=== PATIENT | female | born 1925 | race Caucasian/White ===

== ENCOUNTER 2017-11-16 10:15 | Emergency (ER) | payer MEDICARE ==
[2017-11-16 11:19] LABS: ABS Basophils 0 10^3/ul (0-0.2); ABS Eosinophils 0.1 10^3/ul (0-0.6); ABS Lymphocytes 1.9 10^3/ul (1.0-4.8); ABS Monocytes 0.4 10^3/ul (0-0.8); ABS Neutrophils 3.6 10^3/ul (1.5-7.7); ABS Nucleated RBC 0 10^3/ul; Eosinophil % 2.1 % (0-6); Hematocrit 41 % (35-47); Hemoglobin 13.8 g/dl (12.0-16.0); Lymphocyte % 31.4 % (25-47); Mean Corpuscular HGB Conc 34 g/dl (31-36); Mean Corpuscular Hemoglobin 31 pg (27-31); Mean Corpuscular Volume 91 fL (80-97); Mean Platelet Volume 7 um3 (7.4-10.4); Nucleated Red Blood Cells % 0; Platelet Count 185 10^3/ul (150-450); Red Cell Distribution Width 13 % (10.5-15); White Blood Count 6.1 10^3/ul (3.5-10.8)
[2017-11-16 11:36] LABS: EGFR Non-African American 56.8 (>60)
--- NOTE | 2017-11-16 11:53 | RAD ---
INDICATION: Chest pain COMPARISON: Most recent chest x-rays dated June 20, 2016 TECHNIQUE: Single AP portable view of the chest was obtained. FINDINGS: Image quality is compromised due to the relative inferiority of a portable chest x-ray. The heart and mediastinum exhibit normal size and contour. There is density obscuring the left greater than right lung bases. There is bilateral costophrenic angle blunting. More superiorly the lungs are adequately aerated in the AP projection. Visualized bones are normal for the patient's age. IMPRESSION: Density of securing the lung bases could represent atelectasis, consolidation or possibly pleural effusion.
[2017-11-16] MEDS ORDERED: Aspirin TAB* 325 MG PO ONE (12:02)
--- NOTE | 2017-11-16 14:10 | CONSULT ---
Subjective Date of Service: 11/16/17 Interval History: Since about AM she has had brief jolts of pain in her left chest behind her breast, every 5-10 minutes. Not pleuritic. She did not eat breakfast or take her AM meds today. No recent unusual activity, no falls. Chronic RON, unchanged. Family History: Findings - Cancer in both parents. Father had MO. Social History: Findings - Lives alone, never smoked. No alcohol abuse. SDM is her daughter. Past Medical History: Findings - Hysterectomy, , R knee arthroscopy, shoulder surgery. COPD, restless legs, hypothryoid, HTN, OA. Review of Systems - Measurements Intake and Output: Intake and Output Last 24 Hours 11/14/17 11/15/17 11/16/17 11/17/17 06:59 06:59 06:59 06:59 Weight 149 lb - Review of Systems Constitutional Symptoms: Negative: Weight Gain, Weight Loss, Weakness, Fatigue, Fever, Night Sweats, Unexplained Falls, Other Dermatology: Positive: Normal HEENT: Positive: Normal Eyes: Positive: Normal Thyroid: Positive: Primary Hypothyroidism Pulmonary: Positive: Asthma Cardiology: Positive: Chest Pain Gastroenterology: Positive: Normal Genital - Urinary: Positive: Normal Musculoskeletal: Positive: Joint Pain, Low Back Pain Endocrinology: Positive: Thyroid Problems, Obesity Hematologic/Lymphatic: Negative: Anemia, Easy Brusing, Hx Leukemia, Hx Lymphoma, Use of Anticoagulant, Use of Antiplatelet Drugs, Other Neurology: Positive: Normal Psychiatry: Positive: Normal Allergic/Immunologic: Negative: Hx Anaphylaxis, Hx Angioedema, Hx Environmental, Hx Seasonal, Athsma, Hx HIV, Immunocompromise, Swollen Glands LymphNodes, Other Objective Vital Signs - 8 hr 11/16/17 11/16/17 11/16/17 10:16 11:25 11:27 Temperature 97.7 F Pulse Rate 80 70 Respiratory 20 19 Rate Blood Pressure 153/61 (mmHg) O2 Sat by Pulse 97 97 97 Oximetry 11/16/17 11/16/17 11/16/17 12:00 12:32 13:00 Temperature Pulse Rate 79 83 Respiratory 19 21 Rate Blood Pressure 149/75 115/57 (mmHg) O2 Sat by Pulse 96 96 Oximetry Oxygen Devices in Use Now: None Appearance: Alert, sitting up on ED stretcher. In good spirits. Looks comfortable. Eyes: No Scleral Icterus Ears/Nose/Mouth/Throat: Clear Oropharnyx, Mucous Membranes Moist Neck: NL Appearance and Movements; NL JVP, No Thyroid Enlargement, Masses Respiratory: Symmetrical Chest Expansion and Respiratory Effort, Clear to Auscultation, Clear to Percussion Cardiovascular: NL Sounds; No Murmurs; No JVD, RRR, No Edema, - - mild tenderness chest wall just underneath L breast Abdominal: NL Sounds; No Tenderness; No Distention, No Hepatosplenomegaly, - Extremities: No Edema, No Clubbing, Cyanosis Skin: No Rash or Ulcers, No Nodules or Sclerosis Neurological: Alert and Oriented x 3, NL Sensation Result Diagrams: 11/16/17 11:05 11/16/17 11:05 Assessment/Plan - Billing Plan By Medical Problem: 1. Chest pain, not cardiac. Pain lasts 1 second, recurs every 5-10 minutes. Tender at site of pain, suspect chest wall pain. 2. HTN, restless legs, thypothyroid, all stable. Patient and daughter advised to expect resolution of pain in next 1-3 days, fup with Dr. Nixon if any worsening or pain not gone after 3 days.
[2017-11-16 15:48] VITALS: BP 137/60
--- NOTE | 2017-11-16 16:31 | ED ---
Benito Jenkins Gabriel, scribed for Alex Galo MD on 11/16/17 at 1125 . HPI Chest Pain - HPI Summary HPI Summary: This patient is a 89 year old F presenting to [facility] accompanied by her daughter with a chief complaint of CP since 0900 this morning while in bed. Patient denies NVD, SOB, dizziness, and edema. The patient rates the pain 6/10 in severity, located in the middle of her chest, and describes it as jabbing. She states that the pain is intermittent lasting seconds and resolving for several minutes. Symptoms aggravated by nothing. Patient uses a neb at home once a day and has for years. Patient states she takes a baby aspirin every other day. - History of Current Complaint Chief Complaint: EDChestPainROMI Time Seen by Provider: 11/16/17 11:16 Hx Obtained From: Patient Hx Last Menstrual Period: n/a Onset/Duration: Started Hours Ago - 0900, Still Present Timing: Intermittent, Lasting Seconds Initial Severity: Moderate Current Severity: None Pain Intensity: 6 Pain Scale Used: 0-10 Numeric Chest Pain Location: Mid Sternal Chest Pain Radiates: No Character: Sharp/Stabbing - jabbing Aggravating Factor(s): Nothing Associated Signs and Symptoms: Positive: Negative - NVD, SOB, dizziness, and edema - Allergy/Home Medications Allergies/Adverse Reactions: Allergies Allergy/AdvReac Type Severity Reaction Status Date / Time Cefazolin [From Kefzol] Allergy Severe Rash Verified 08/20/17 14:01 Sulfa Drugs Allergy Unknown Unknown Verified 08/20/17 14:01 Reaction Details Budesonide [From Symbicort] Allergy Unknown Verified 08/20/17 14:01 Reaction Details Diphenhydramine Allergy See Comment Verified 08/20/17 14:01 [From Benadryl] Erythromycin Allergy Unknown Verified 08/20/17 14:01 Reaction Details Formoterol [From Symbicort] Allergy Unknown Verified 08/20/17 14:01 Reaction Details Gabapentin [From Neurontin] Allergy Unknown Verified 08/20/17 14:01 Reaction Details Nitrofurantoin Allergy Rash And Verified 08/20/17 14:01 [From Macrodantin] Itching Ropinirole [From Requip] Allergy See Comment Verified 08/20/17 14:01 PMH/Surg Hx/FS Hx/Imm Hx Previously Healthy: No Endocrine/Hematology History: Reports: Hx Thyroid Disease - low thyroid Denies: Hx Diabetes Cardiovascular History: Reports: Hx Hypercholesterolemia, Other Cardiovascular Problems/Disorders - MITROVALVE PROLAPSE Denies: Hx Hypertension Respiratory History: Reports: Hx Asthma - SEVERE, Hx Chronic Obstructive Pulmonary Disease (COPD), Other Respiratory Problems/Disorders - EMPHYSEMA GI History: Denies: Hx Ulcer History: Denies: Hx Renal Disease Sensory History: Reports: Hx Contacts or Glasses Opthamlomology History: Reports: Hx Contacts or Glasses - Surgical History Surgery Procedure, Year, and Place: hysterrectomy; uterus raised; ; L knee; R shoulder reconstruction Infectious Disease History: No Infectious Disease History: Denies: Hx Clostridium Difficile, Hx Hepatitis, Hx Human Immunodeficiency Virus (HIV), Hx of Known/Suspected MRSA, Hx Shingles, Hx Tuberculosis, Hx Known/ Suspected VRE, Hx Known/Suspected VRSA, History Other Infectious Disease, Traveled Outside the [place] in Last 30 Days - Family History Known Family History: Negative: Cardiac Disease - Social History Alcohol Use: None Hx Substance Use: No Substance Use Type: Reports: None Hx Tobacco Use: No Smoking Status (MU): Never Smoked Tobacco Have You Smoked in the Last Year: No Review of Systems Positive: Chest Pain Negative: Shortness Of Breath Negative: Vomiting, Diarrhea, Nausea Negative: Edema Neurological: Negative - dizziness All Other Systems Reviewed And Are Negative: Yes Physical Exam - Summary Physical Exam Summary: Appearance: The patient is well-nourished in no acute distress and in no acute pain. Skin: The skin is warm and dry and skin color reflects adequate perfusion. HEENT: The head is normocephalic and atraumatic. The pupils are equal and reactive. The conjunctivae are clear and without drainage. Nares are patent and without drainage. Mouth reveals moist mucous membranes and the throat is without erythema and exudate. The external ears are intact. The ear canals are patent and without drainage. The tympanic membranes are intact. Neck: the neck is supple with full range of motion and non-tender. There are no carotid bruits. There is no neck vein distension. Respiratory: Chest is non-tender. Lungs are clear to auscultation and breath sounds are symmetrical and equal. Cardiovascular: Heart is regular rate and rhythm. There is no murmur or rub auscultated. There is no peripheral edema and pulses are symmetrical and equal. Abdomen: The abdomen is soft and non-tender. There are normal bowel sounds heard in all four quadrants and there is no organomegaly palpated. Musculoskeletal: There is no back tenderness noted. Extremities are non-tender with full range of motion. There is good capillary refill. There is no peripheral edema or calf tenderness elicited. Neurological: Patient is alert and oriented to person, place and time. The patient has symmetrical motor strength in all four extremities. Cranial nerves are grossly intact. Deep tendon reflexes are symmetrical and equal in all four extremities. Psychiatric: The patient has an appropriate affect and does not exhibit any anxiety or depression. Triage Information Reviewed: Yes Vital Signs On Initial Exam: Initial Vitals Temp Pulse Resp BP Pulse Ox 97.7 F 80 20 153/61 97 11/16/17 10:16 11/16/17 10:16 11/16/17 10:16 11/16/17 10:16 11/16/17 10:16 Vital Signs Reviewed: Yes Diagnostics - Vital Signs Vital Signs Temp Pulse Resp BP Pulse Ox 11/16/17 11:25 97 11/16/17 10:16 97.7 F 80 20 153/61 97 - Laboratory Lab Results: Lab Results 11/16/17 Range/Units 11:05 WBC 6.1 (3.5-10.8) 10^3/ul RBC 4.50 (4.0-5.4) 10^6/ul Hgb 13.8 (12.0-16.0) g/dl Hct 41 (35-47) % MCV 91 (80-97) fL MCH 31 (27-31) pg MCHC 34 (31-36) g/dl RDW 13 (10.5-15) % Plt Count 185 (150-450) 10^3/ul MPV 7 L (7.4-10.4) um3 Neut % (Auto) 59.2 (38-83) % Lymph % (Auto) 31.4 (25-47) % Warrick % (Auto) 6.6 (1-9) % Eos % (Auto) 2.1 (0-6) % Baso % (Auto) 0.7 (0-2) % Absolute Neuts (auto) 3.6 (1.5-7.7) 10^3/ul Absolute Lymphs (auto) 1.9 (1.0-4.8) 10^3/ul Absolute Monos (auto) 0.4 (0-0.8) 10^3/ul Absolute Eos (auto) 0.1 (0-0.6) 10^3/ul Absolute Basos (auto) 0 (0-0.2) 10^3/ul Absolute Nucleated RBC 0 10^3/ul Nucleated RBC % 0 Result Diagrams: 11/16/17 11:05 11/16/17 11:05 Lab Statement: Any lab studies that have been ordered have been reviewed, and results considered in the medical decision making process. - Radiology CXR Radiology Interpretation Completed By: Radiologist - Density of securing the lung bases could represent atelectasis, consolidation or possibly pleural effusion. ED physician has reviewed this radiology report. - EKG 1025 Cardiac Rate: NL EKG Rhythm: Sinus Rhythm - at 77 BPM EKG Interpretation: nonspecific interior changes EKG Comparison: No Significant Change - in comparison with EKG from 06/20/16 Chest Pain Course/Dx - Course Course Of Treatment: Ms. Adorno presented with an atypical chest pain of uncertain duration secondary to some mild dementia. She had an EDACS of 20 and d-dimer and two troponins negative. I was uncertain about the pain and consulted Dr. Lawson who felt she could be D/C'd safetly. - Diagnoses Provider Diagnoses: Chest pain - Provider Notifications Discussed Care Of Patient With: Bandar Lazaro Time Discussed With Above Provider: 13:17 Instructed by Provider To: Other - Discussed patient care with Dr. Lazaro and he has agreed to see the patient. 1351: Dr. Lazaro has seen the patient and believes she can be discharged because the it does not seem that the pain is cardiac. Discharge - Discharge Plan Condition: Stable Disposition: ADMITTED TO [facility] Patient Education Materials: Chest Pain (ED) Referrals: Simran Nixon MD [Primary Care Provider] - 3 Days Additional Instructions: RETURN TO THE EMERGENCY DEPARTMENT FOR CHANGING OR WORSENING SYMPTOMS. The documentation as recorded by the Benito tellez Gabriel accurately reflects the service I personally performed and the decisions made by , Alex Galo MD.
== END 2017-11-16 15:46 | disposition short-term general hospital (02) ==
LOC: ED 10:15
DX: R07.89 Other chest pain (principal); F03.90 Unspecified dementia, unspecified severity, without behavioral disturbance, psychotic disturbance, mood disturbance, and anxiety; E03.9 Hypothyroidism, unspecified; E78.00 Pure hypercholesterolemia, unspecified; I34.1 Nonrheumatic mitral (valve) prolapse; J44.9 Chronic obstructive pulmonary disease, unspecified; Z79.82 Long term (current) use of aspirin; Z88.2 Allergy status to sulfonamides; I10 Essential (primary) hypertension; M19.90 Unspecified osteoarthritis, unspecified site; G25.81 Restless legs syndrome
CPT/HCPCS: 36415; 71010; 80053; 83605; 84484; 85025; 85379; 86140; 93005; 99282